=== PATIENT | male | born 1955 | race Caucasian/White ===

== ENCOUNTER 2016-08-12 05:53 | Day surgery (SDC) | payer BC ==
[~2016-08-12] VITALS: Ht 175.3 cm; Wt 93.2 kg
--- NOTE | ~2016-08-12 | OP ---
PATIENT NAME: ADRIA FERRARI MEDICAL RECORD: [id number] :53 LOCATION:[id number] ADMISSION DATE: SURGEON: MERLIN BOWLING MD DATE OF OPERATION: 08/12/2016 PREOPERATIVE DIAGNOSES: 1. Internal bleeding hemorrhoids. 2. Hypertension. POSTOPERATIVE DIAGNOSES: 1. Internal bleeding hemorrhoids. 2. Hypertension. PROCEDURES: 1. PPH stapled hemorrhoidectomy. 2. Excision of anal skin tag. SURGEON: Merlin Bowling MD REPORT OF PROCEDURE: The patient was placed in the jackknife prone position and the perianal region was prepped and draped in sterile fashion. An anoscope was inserted and a 360 degree inspection was performed. The patient had moderate size internal hemorrhoids present with no active signs of bleeding. A 2-0 Prolene was used as a pursestring, a couple of centimeters proximal to the dentate line. The PPH stapler was inserted and a large core of tissue was removed. At the conclusion of this, there was no sign of any bleeding. The patient still had 2 areas of enlarged skin tags, 1 anteriorly progressing towards the base of the scrotum and another 1 on the left lateral buttock. These 2 enlarged skin tags were removed and the areas were oversewn with 2-0 chromics. We then inserted a piece of Gelfoam dipped in [place] into the anus and covered it with an ABD pad. COMPLICATIONS: None. CONDITION: Stable. ANESTHESIA: General endotracheal. BLOOD LOSS: Minimal. TRANSINT:[id number] Voice Confirmation ID: [id number] DOCUMENT ID: [id number] MERLIN BOWLING MD CC: TILA CAMACHO MD and COMFORT BEAVER MD [id number] DICTATION DATE: 08/12/161024 WEIGHT SHIFTER: 08/12/162116 [facility] [address] [place] [address]
[~2016-08-12 05:53] MED LIST: CARDURA4 MG PO; PRAVACHOL40 MG PO; ZESTRIL40 MG PO
[2016-08-12 06:49] LABS: BASOPHILS 0.2 % (0-2); EOSINOPHILS 0.8 % (0-7); HEMOGLOBIN 16.9 g/dL (13.5-17.5); IMMATURE GRANULOCYTES 0.1 % (0-5); LYMPHOCYTES 15.7 % (15-50); MCH 27.5 pg (26.0-34.0); MCHC 33.1 g/dL (31.0-37.0); MCV 82.9 fL (80.0-100.0); MEAN PLATELET VOLUME 12.6 fL (7.4-10.4); NEUTROPHILS 75.2 % (40-80); PLATELET COUNT 105 10x3/uL (130-400); RBC 6.15 10x6/uL (4.20-6.10); RDW 14.9 % (11.5-14.5)
[2016-08-12 06:53] LABS: ANION GAP 13.4 mmol/L (8-16); CALCIUM 8.7 mg/dL (8.5-10.1); CREATININE - SERUM 1.5 mg/dL (0.6-1.3); POTASSIUM - SERUM 4.4 mmol/L (3.5-5.1)
[2016-08-12 07:43] VITALS: BP 144/86; BMI 30.3
[2016-08-12] MEDS ORDERED: PERCOCET 10/3251 TA1 PO (10:18)
--- NOTE | 2016-08-12 17:33 | NUR ---
1240 STILL UNABLE TO VOID, NEW BAG OF IV FLUIDS HANGED LR @125CC
--- NOTE | 2016-08-12 17:36 | NUR ---
1420 DR BOWLING CALLED NEW ORDERS, 1445 CARDURA 2 MG GIVEN PER PT REQUEST 1445 BLADDER SCAN 350CC NOTED 1613 C/O OF SOME DISCOMFORT PERCOCET 10MG PO GIVEN STILL UNABLE TO VOID, REFUSING TO BE CATH AT THIS TIME 1700 BLADDER SCAN SHOWING 500CC ,PT STILL WANTS TO WAIT
--- NOTE | 2016-08-12 17:58 | NUR ---
CATH WITH 16 FR ROMERO [address] [place] [address] OLMEDO CALLED NEW ORDERS, PATIENT CAN STAY UNTIL HE GO ON HIS ON , OR I CAN REMOVE ROMERO AND HE CAN GO HOME BUT IF HE CAN NOT GO HE NEEDS TO COME BACK IN TO THE ED , OR HE CAN STAY OVER NIGHT AND GO IN AM, PATIENT AND HIS IS TALKING IT OVER
--- NOTE | 2016-08-12 18:46 | NUR ---
PATIET STAYING OVER NIGHT WANTS TO LEAVE HEATHER IN , HOUSE SUPERVIOR CALLED FOR OVERNIGHT BED, ROOM 2231
--- NOTE | 2016-08-12 19:11 | NUR ---
REPORT CALLED TO SAÚL AHUMADA RN
--- NOTE | 2016-08-12 19:12 | NUR ---
TRANFER TO FLOOR PRE WC
--- NOTE | 2016-08-12 20:08 | NUR ---
RECIEVED PT FROM ER VIA WHEELCHAIR, ASSESSMENT COMPLETED, NO ACUTE DISTRESS NOTED, DENIES NEEDS AT THIS TIME, ORIENTED TO ROOM AND CL, SR'S UP X2, CL IN REACH, WILL MONITOR
--- NOTE | 2016-08-12 21:08 | NUR ---
ROUTINE MEDS GIVEN PER MAR ALONG WITH PRN PERCOCET FOR C/O OF SURGICAL SITE PAIN, CECE WELL, DENIES FURTHER NEEDS AT THIS TIME, CL IN REACH
--- NOTE | 2016-08-12 23:32 | NUR ---
RESTING WITH EYES CLOSED, NO DISTRESS NOTED, SR'S UP X2, CL IN REACH
[2016-08-12 23:40] VITALS: BP 126/78
[2016-08-13 00:55] VITALS: BP 129/85; Ht 175.3 cm; Wt 93.2 kg
--- NOTE | 2016-08-13 01:07 | NUR ---
PRN PAIN MED GIVEN FOR C/O PAIN 09/10, CECE WELL, CL IN REACH
--- NOTE | 2016-08-13 03:36 | NUR ---
PATIENT IS RESTING IN BED AND DENIES NEEDS AT THIS TIME. BED IN LOWEST POSITION AND CALL LIGHT WITHIN REACH. ENCOURAGED THE PATIENT TO CALL IF HE HAS NEEDS.
[2016-08-13 03:55] VITALS: BP 121/80
--- NOTE | 2016-08-13 08:00 | NUR ---
PATIENT ALERT IN BED WITH FAMILY PRESENT. RESPIRATIONS EVEN AND UNLABORED. SIDE RAILS UP X2. BED IN LOW POSITION. CALL LIGHT IN REACH.
--- NOTE | 2016-08-13 08:23 | NUR ---
RESTING, CLAMPED CATHETER, EMPTIED 800CC FROM ROMERO, WANTING ROMERO OUT TO TRY AND URINATE WITHOUT ROMERO, HOPEFUL FOR DISCHARGE, BED LOWEST POSITION, CALL LIGHT IN [facility], WILL CONTINUE TO MONITOR
[2016-08-13 08:53] VITALS: BP 145/77
[2016-08-13 11:04] VITALS: BP 140/69
[2016-08-13] MEDS ORDERED: MIRALAX17 GM PO (12:50)
[2016-08-13] MEDS ORDERED: COLACE100 MG PO (12:50)
[2016-08-13] MEDS ORDERED: MILK OF MAGNESI30 ML PO (12:50)
--- NOTE | 2016-08-13 13:42 | NUR ---
DISCHARGE PAPERS AND INSTRUCTIONS GIVEN TO PATIENT AND SPOUSE, QUESTIONS ANSWERED, IV REMOVED TIP INTACT, DICAHRGED PER WC WITH BELONGINGS
== END 2016-08-13 13:48 | disposition home or self-care (01) ==
LOC: D.OPS 05:53 → D.MS 05:53 → D.OPS 08:30 → D.MS 19:16 → D.OPS 08-13 13:48
PROVIDERS: Anesthesiology
DX: K64.8 Other hemorrhoids (principal); I10 Essential (primary) hypertension; G47.30 Sleep apnea, unspecified; R33.9 Retention of urine, unspecified; N40.0 Benign prostatic hyperplasia without lower urinary tract symptoms; Z01.812 Encounter for preprocedural laboratory examination

== ENCOUNTER 2016-08-13 20:51 | Emergency (ER) | payer BC ==
[2016-08-13 00:55] VITALS: BMI 30.3
[~2016-08-13 20:51] MED LIST changes: +COLACE100 MG PO; +MILK OF MAGNESI30 ML PO; +MIRALAX17 GM PO; +PERCOCET 10/3251 TA1 PO
[2016-08-13 22:24] LABS: APPEARANCE CLEAR (CLEAR); BILIRUBIN NEGATIVE (NEGATIVE); COLOR YELLOW (YELLOW); GLUCOSE NEGATIVE (NEGATIVE); KETONE NEGATIVE (NEGATIVE); LEUKOCYTE ESTERASE 1+ (NEGATIVE); NITRITE NEGATIVE (NEGATIVE); PROTEIN NEGATIVE (NEGATIVE); SPECIFIC GRAVITY 1.015 (1.005-1.020); UROBILINOGEN NORMAL (NORMAL)
[2016-08-13 22:26] LABS: BACTERIA FEW /hpf (NONE SEEN); EPITHELIAL CELLS 0-5 /hpf (0-5); RED CELLS - URINE 0-5 /hpf (0-5); WHITE CELLS - URINE 0-5 /hpf (0-5)
== END 2016-08-13 23:00 | disposition home or self-care (01) ==
LOC: D.ER 20:51
PROVIDERS: Family Medicine
DX: R33.9 Retention of urine, unspecified (principal); I10 Essential (primary) hypertension; N40.0 Benign prostatic hyperplasia without lower urinary tract symptoms; E78.00 Pure hypercholesterolemia, unspecified